=== PATIENT | female | born 1990 | race African-American/Black ===

== ENCOUNTER 2017-03-12 23:04 | Emergency (ER) | payer SELFPAY ==
[~2017-03-12] VITALS: Ht 160 cm; Wt 72.6 kg
[2017-03-12 23:05] VITALS: BP 135/77
--- NOTE | 2017-03-13 | NUR ---
CALLED FOR ROOM ASSIGNMENT; FOUND SLEEPING. STATES "I WANNA SEE A DOCTOR BUT DONT WANNA GIVE URINE OR COME IN NOW; DOTN EVEN WANT TO FEEL OUT THIS PAPERWORK. WILL CALL YOU LATER".
--- NOTE | 2017-03-13 02:02 | NUR ---
STATES "I WANT SOMEWHERE TO SLEEP SO MY BOYFRIEND CAN PICK ME UP IN THE MORNING"
--- NOTE | 2017-03-13 02:09 | NUR ---
PT TO BE REGISTERED AND HAVE NEW ACCOUNT.
== END 2017-03-13 02:10 | disposition home or self-care (01) ==
LOC: ER 23:07 → EDSEX 23:07 → ER 03-13 02:10
DX: Z53.21 Procedure and treatment not carried out due to patient leaving prior to being seen by health care provider (principal)

== ENCOUNTER 2022-08-26 14:25 | Emergency (ER) | payer MEDICARE, OTHER ==
[~2022-08-26] VITALS: Ht 165.1 cm; Wt 60.8 kg
--- NOTE | 2022-08-26 14:50 | NUR ---
PT SEEN BY MD AT BEDSIDE
--- NOTE | 2022-08-26 15:11 | NUR ---
PT SIGNED DISCHARGE FORM AND PROVIDED PRINTED RESOURCES; ACCEPTED BY PT.
--- NOTE | 2022-08-26 15:31 | NUR ---
Patient discharged to home in stable condition. Written and verbal after care instructions given. Patient verbalizes understanding of instruction.
[2022-08-26 15:36] VITALS: BP 130/68
== END 2022-08-26 15:37 | disposition home or self-care (01) ==
LOC: ER 14:25
DX: Z00.00 Encounter for general adult medical examination without abnormal findings (principal)

== ENCOUNTER 2022-09-11 03:26 | Emergency (ER) | payer MEDICARE, OTHER ==
--- NOTE | 2022-09-11 03:35 | NUR ---
PATIENT REFUSED TO BE SEEN BY A DOCTOR AND GET TRIAGED .
== END 2022-09-11 03:36 | disposition left against medical advice (07) ==
LOC: ER 03:28
DX: Z53.21 Procedure and treatment not carried out due to patient leaving prior to being seen by health care provider (principal)

== ENCOUNTER 2022-10-15 00:07 | Emergency (ER) | payer MEDICARE, OTHER ==
[~2022-10-15] VITALS: Ht 175.3 cm; Wt 52.6 kg
[2022-10-15 00:57] VITALS: BP 121/72
[2022-10-15] MEDS ORDERED: DOXY100C2 PO (00:59)
[2022-10-15] MEDS ORDERED: CEFTRIAXONE 500 MG VIAL IM ONE (01:00)
[2022-10-15] MEDS ORDERED: DOXYCYCLINE HYCLATE (100 MG) 100 MG TABLET PO ONE (01:00)
[2022-10-15] MEDS ORDERED: DOXYCYCLINE HYCLATE (100 MG) 100 MG TABLET ONE (01:06)
[2022-10-15] MEDS ORDERED: CEFTRIAXONE 500 MG VIAL ONE (01:06)
== END 2022-10-15 02:16 | disposition home or self-care (01) ==
LOC: ER 00:08
DX: A64 Unspecified sexually transmitted disease (principal)
CPT/HCPCS: J0696

== ENCOUNTER 2023-02-21 00:04 | Emergency (ER) | payer OTHER ==
[~2023-02-21] VITALS: Ht 175.3 cm; Wt 72.6 kg
[~2023-02-21 00:04] MED LIST: DOXY100C2 PO
[2023-02-21 00:10] VITALS: BP 152/71
--- NOTE | 2023-02-21 01:01 | NUR ---
Called pt to the exam room. pt is sleeping and wants to wait.
--- NOTE | 2023-02-21 01:40 | NUR ---
called pt in. pt refused to respond and wants to sleep.
--- NOTE | 2023-02-21 02:05 | NUR ---
Called pt to the exam room. pt is sleeping and wants to wait.
--- NOTE | 2023-02-21 03:31 | NUR ---
called pt to the exam room. pt is sleeping and refused to come in
--- NOTE | 2023-02-21 05:48 | NUR ---
CALLED PT IN. PT WANTS TO SLEEP AND REFUSED TO ANSWER
== END 2023-02-21 06:06 | disposition left against medical advice (07) ==
LOC: ER 00:10
DX: R10.9 Unspecified abdominal pain (principal)

== ENCOUNTER 2023-06-06 16:29 | Emergency (ER) | payer OTHER | END 2023-06-06 17:07 | disposition left against medical advice (07) | LOC: ER 16:35 | DX: Z53.21 Procedure and treatment not carried out due to patient leaving prior to being seen by health care provider (principal) ==

== ENCOUNTER 2023-08-04 23:48 | Emergency (ER) | payer OTHER, MEDICAID ==
[~2023-08-04] VITALS: Ht 188 cm; Wt 90.7 kg
[2023-08-05 02:29] LABS: APPEARANCE,URINE SLIGHTLY CLOUDY (CLEAR); BILIRUBIN,URINE NEGATIVE (NEGATIVE); BLOOD, URINE NEGATIVE Ery/uL (NEGATIVE); COLOR,URINE YELLOW (YELLOW); KETONES,URINE NEGATIVE (NEGATIVE); LEUKOCYTE ESTERASE ,URINE 2+ (NEGATIVE); NITRITE, URINE NEGATIVE (NEGATIVE); PROTEIN,URINE NEGATIVE (NEGATIVE); UGLUCOSE NEGATIVE (NEGATIVE); UROBILINOGEN,URINE 0.2 EU/dL (0.2)
[2023-08-05 02:33] LABS: PREGNANCY TEST URINE QUAL NEGATIVE (NEGATIVE)
[2023-08-05] MEDS ORDERED: NITR100C PO (02:35)
[2023-08-05] MEDS ORDERED: KETOROLAC TROMETHAMINE 15 MG/ML VIAL ONE (02:40)
[2023-08-05 02:48] VITALS: BP 103/75; TEMP 98; O2SAT 97
[2023-08-05 02:48] LABS: ADD URINE CULTURE YES; BACTERIA,URINE 2+ /HPF (None Seen); RBC,URINE 0-2 /HPF (0-2)
[2023-08-05] MEDS ORDERED: KETOROLAC TROMETHAMINE INJ 60 MG/2 ML VIAL IM ONE (03:00)
== END 2023-08-05 02:48 | disposition home or self-care (01) ==
LOC: ER 23:50
DX: N39.0 Urinary tract infection, site not specified (principal); Z88.0 Allergy status to penicillin; Z88.8 Allergy status to other drugs, medicaments and biological substances; Z59.00 Homelessness unspecified
CPT/HCPCS: 99285; 76856; 96372; 87086; 84703; 81001; J1885

== ENCOUNTER 2023-08-28 20:17 | Emergency (ER) | payer OTHER, MEDICAID ==
[~2023-08-28] VITALS: Ht 165.1 cm; Wt 90.7 kg
[~2023-08-28 20:17] MED LIST changes: +NITR100C PO
[2023-08-29 03:59] VITALS: BP 102/62; TEMP 98; O2SAT 100
== END 2023-08-29 06:14 | disposition home or self-care (01) ==
LOC: ER 20:23
DX: T76.21XA Adult sexual abuse, suspected, initial encounter (principal); Z88.0 Allergy status to penicillin; Z88.8 Allergy status to other drugs, medicaments and biological substances; Z59.00 Homelessness unspecified

== ENCOUNTER 2023-09-05 06:16 | Emergency (ER) | payer OTHER, MEDICAID ==
[~2023-09-05] VITALS: Ht 157.5 cm; Wt 95.3 kg
[2023-09-05] MEDS ORDERED: KETOROLAC TROMETHAMINE INJ 30 MG/ML VIAL ONE (06:46)
[2023-09-05] MEDS ORDERED: KETOROLAC TROMETHAMINE INJ 30 MG/ML VIAL IM ONE (07:00)
[2023-09-05 07:04] VITALS: BP 108/66; TEMP 98.3; O2SAT 100
== END 2023-09-05 07:05 | disposition left against medical advice (07) ==
LOC: ER 06:30
DX: Z88.0 Allergy status to penicillin (principal); Z79.899 Other long term (current) drug therapy
CPT/HCPCS: 99283; 96372; J1885

== ENCOUNTER 2023-09-09 18:04 | Emergency (ER) | payer OTHER, MEDICAID ==
[~2023-09-09] VITALS: Ht 188 cm; Wt 82.6 kg
[2023-09-09 18:55] VITALS: BP 134/78; TEMP 98.7; O2SAT 100
== END 2023-09-09 22:15 | disposition left against medical advice (07) ==
LOC: ER 18:09
DX: R10.2 Pelvic and perineal pain (principal); Z53.21 Procedure and treatment not carried out due to patient leaving prior to being seen by health care provider

== ENCOUNTER 2023-09-26 20:55 | Emergency (ER) | payer OTHER, MEDICAID ==
[~2023-09-26] VITALS: Ht 167.6 cm; Wt 95.3 kg
[2023-09-26 22:16] VITALS: BP 119/74; TEMP 98.4; O2SAT 98
== END 2023-09-26 22:17 | disposition home or self-care (01) ==
LOC: ER 21:07
DX: R10.2 Pelvic and perineal pain (principal); Z53.21 Procedure and treatment not carried out due to patient leaving prior to being seen by health care provider

== ENCOUNTER 2023-09-27 05:15 | Emergency (ER) | payer OTHER, MEDICAID ==
[~2023-09-27] VITALS: Ht 167.6 cm; Wt 95.3 kg
[2023-09-27 05:29] VITALS: BP 103/42; TEMP 98; O2SAT 98
[2023-09-27] MEDS ORDERED: KETOROLAC TROMETHAMINE 15 MG/ML VIAL ONE (06:20)
[2023-09-27] MEDS ORDERED: ACETAMINOPHEN 325 MG TABLET ONE (06:21)
[2023-09-27] MEDS ORDERED: ACETAMINOPHEN 325 MG TABLET PO ONE (06:30)
[2023-09-27] MEDS ORDERED: KETOROLAC TROMETHAMINE 15 MG/ML VIAL IM ONE (06:30)
== END 2023-09-27 07:45 | disposition home or self-care (01) ==
LOC: ER 05:24
DX: G89.29 Other chronic pain (principal); R10.2 Pelvic and perineal pain; Z88.0 Allergy status to penicillin; Z88.8 Allergy status to other drugs, medicaments and biological substances; Z59.00 Homelessness unspecified
CPT/HCPCS: 99283; 96372; J1885

== ENCOUNTER 2024-02-25 11:58 | Emergency (ER) | payer OTHER, MEDICAID | END 2024-02-25 12:22 | disposition left against medical advice (07) | LOC: ER 12:05 | DX: Z00.8 Encounter for other general examination (principal); Z53.21 Procedure and treatment not carried out due to patient leaving prior to being seen by health care provider ==

== ENCOUNTER 2024-03-29 00:38 | Emergency (ER) | payer OTHER, MEDICAID | END 2024-03-29 04:52 | disposition left against medical advice (07) | LOC: ER 00:52 | DX: R10.2 Pelvic and perineal pain (principal); Z53.21 Procedure and treatment not carried out due to patient leaving prior to being seen by health care provider ==

== ENCOUNTER 2024-04-06 06:01 | Emergency (ER) | payer OTHER, MEDICAID ==
[~2024-04-06] VITALS: Ht 162.6 cm; Wt 63.5 kg
[2024-04-06] MEDS ORDERED: KETOROLAC TROMETHAMINE 15 MG/ML VIAL ONE (06:41)
[2024-04-06] MEDS: KETOROLAC TROMETHAMINE 15 MG/ML VIAL IM ONE (07:00)
[2024-04-06 07:29] VITALS: BP 100/68; TEMP 98.4; O2SAT 98
== END 2024-04-06 07:29 | disposition home or self-care (01) ==
LOC: ER 06:06
DX: R10.2 Pelvic and perineal pain (principal); Z98.890 Other specified postprocedural states; Z79.899 Other long term (current) drug therapy; Z59.00 Homelessness unspecified; Z88.0 Allergy status to penicillin
CPT/HCPCS: 99283; 96372; J1885

== ENCOUNTER 2024-05-09 10:08 | Emergency (ER) | payer OTHER, MEDICAID | END 2024-05-09 10:35 | disposition left against medical advice (07) | LOC: ER 10:08 | DX: R10.9 Unspecified abdominal pain (principal); Z53.21 Procedure and treatment not carried out due to patient leaving prior to being seen by health care provider ==

== ENCOUNTER 2024-07-22 06:53 | Emergency (ER) | payer OTHER | END 2024-07-22 08:27 | disposition home or self-care (01) | LOC: ER 06:57 | DX: Z53.21 Procedure and treatment not carried out due to patient leaving prior to being seen by health care provider (principal) ==

== ENCOUNTER 2024-08-18 06:28 | Emergency (ER) | payer OTHER ==
[~2024-08-18] VITALS: Ht 172.7 cm; Wt 90.7 kg
[2024-08-18] MEDS ORDERED: ACETAMINOPHEN ES 500 MG TABLET ONE (08:06)
[2024-08-18] MEDS: ACETAMINOPHEN ES 500 MG TABLET PO ONE (08:09)
[2024-08-18 08:27] VITALS: BP 128/64; TEMP 98.2; O2SAT 99
== END 2024-08-18 08:28 | disposition home or self-care (01) ==
LOC: ER 06:28
DX: T76.21XA Adult sexual abuse, suspected, initial encounter (principal); Z79.899 Other long term (current) drug therapy; Z59.00 Homelessness unspecified; Z88.0 Allergy status to penicillin; Y93.89 Activity, other specified; Y92.89 Other specified places as the place of occurrence of the external cause; Y99.8 Other external cause status

== ENCOUNTER 2024-08-29 02:02 | Emergency (ER) | payer OTHER | END 2024-08-29 02:50 | disposition left against medical advice (07) | LOC: ER 02:08 | DX: T76.21XA Adult sexual abuse, suspected, initial encounter (principal); Z53.21 Procedure and treatment not carried out due to patient leaving prior to being seen by health care provider ==

== ENCOUNTER 2024-09-23 05:36 | Emergency (ER) | payer MEDICARE, OTHER ==
[~2024-09-23] VITALS: Ht 172.7 cm; Wt 90.7 kg
[2024-09-23] MEDS ORDERED: DOXY100C2 PO (07:11)
[2024-09-23 07:24] LABS: APPEARANCE,URINE CLEAR (CLEAR); BILIRUBIN,URINE NEGATIVE (NEGATIVE); BLOOD, URINE NEGATIVE Ery/uL (NEGATIVE); COLOR,URINE YELLOW (YELLOW); KETONES,URINE NEGATIVE (NEGATIVE); LEUKOCYTE ESTERASE ,URINE TRACE (NEGATIVE); NITRITE, URINE NEGATIVE (NEGATIVE); PH,URINE 5.5 (5.0-8.0); PROTEIN,URINE NEGATIVE (NEGATIVE); UGLUCOSE NEGATIVE (NEGATIVE); UROBILINOGEN,URINE 0.2 EU/dL (0.2)
[2024-09-23 07:25] LABS: ADD URINE CULTURE NO; BACTERIA,URINE Rare /HPF (None Seen); RBC,URINE 0-2 /HPF (0-2)
[2024-09-23 07:26] LABS: SQUAMOUS EPITHELIAL CELL,UR Moderate /HPF (None Seen)
[2024-09-23] MEDS ORDERED: LIDOCAINE 1% INJ 50 ML MDV IJ ONE (07:38)
[2024-09-23] MEDS ORDERED: CEFTRIAXONE 1 G VIAL ONE (07:39)
[2024-09-23] MEDS: CEFTRIAXONE 1 G VIAL IM ONE (07:45)
[2024-09-23 07:56] VITALS: BP 135/68; TEMP 98.1; O2SAT 98
[2024-09-24 05:13] LABS: RAPID PLASMA REAGIN QUAL. Non Reactive (Non Reactive)
[2024-09-24 13:29] LABS: HIV-1 p24 ANTIGEN NON REACTIVE (NONREACTIVE); HIV-1/2 ANTIBODY NON REACTIVE (NONREACTIVE)
[2024-09-25 07:09] LABS: CHLAMYDIA TRACHOMATIS NAA Negative (Negative); NEISSERIA GONORRHOEAE NAA Negative (Negative)
== END 2024-09-23 07:56 | disposition home or self-care (01) ==
LOC: ER 05:44
DX: T76.21XA Adult sexual abuse, suspected, initial encounter (principal); G89.29 Other chronic pain; R10.2 Pelvic and perineal pain; Z20.2 Contact with and (suspected) exposure to infections with a predominantly sexual mode of transmission; Z59.00 Homelessness unspecified; Z88.0 Allergy status to penicillin; Y08.89XA Assault by other specified means, initial encounter; Y93.89 Activity, other specified; Y92.89 Other specified places as the place of occurrence of the external cause; Y99.8 Other external cause status
CPT/HCPCS: 99283; 86592; 86593; 96372; 81001; 36415; 87806; 87491; 87591; J3490; J0696

== ENCOUNTER 2025-01-08 00:50 | Emergency (ER) | payer MEDICARE ==
[~2025-01-08] VITALS: Ht 165.1 cm; Wt 70.3 kg
== END 2025-01-08 06:27 | disposition home or self-care (01) ==
LOC: ER 00:52
DX: T74.21XA Adult sexual abuse, confirmed, initial encounter (principal); Z59.00 Homelessness unspecified; Z88.0 Allergy status to penicillin; Z79.899 Other long term (current) drug therapy

== ENCOUNTER 2025-01-08 22:52 | Emergency (ER) | payer MEDICARE | END 2025-01-08 23:52 | disposition left against medical advice (07) | LOC: ER 22:54 | DX: Z53.21 Procedure and treatment not carried out due to patient leaving prior to being seen by health care provider (principal) ==

== ENCOUNTER 2025-02-14 17:20 | Emergency (ER) | payer MEDICARE | END 2025-02-14 20:07 | disposition left against medical advice (07) | LOC: ER 17:24 | DX: Z53.21 Procedure and treatment not carried out due to patient leaving prior to being seen by health care provider (principal) ==

== ENCOUNTER 2025-03-29 17:38 | Emergency (ER) | payer MEDICARE ==
[~2025-03-29] VITALS: Ht 157.5 cm; Wt 90.7 kg
[2025-03-29] MEDS ORDERED: DOXY100C2 PO (20:09)
[2025-03-29] MEDS ORDERED: CEFTRIAXONE 500 MG VIAL ONE (20:39)
[2025-03-29] MEDS: CEFTRIAXONE 500 MG VIAL IM ONE (20:55)
[2025-03-29 21:33] VITALS: BP 129/76; TEMP 98.2; O2SAT 100
== END 2025-03-29 21:33 | disposition home or self-care (01) ==
LOC: ER 17:48
DX: T74.21XA Adult sexual abuse, confirmed, initial encounter (principal); Z59.00 Homelessness unspecified; Z88.0 Allergy status to penicillin; Y92.9 Unspecified place or not applicable
CPT/HCPCS: 99283; 96372; J0696

== ENCOUNTER 2025-07-20 22:20 | Emergency (ER) | payer MEDICARE ==
[~2025-07-20] VITALS: Ht 157.5 cm; Wt 90.7 kg
[2025-07-21 00:40] VITALS: BP 137/83; TEMP 98; O2SAT 99
[2025-07-21] MEDS ORDERED: ACETAMINOPHEN ES 500 MG TABLET ONE (01:13)
[2025-07-21] MEDS: ACETAMINOPHEN ES 500 MG TABLET PO ONE (01:16)
== END 2025-07-21 01:16 | disposition home or self-care (01) ==
LOC: ER 22:23
DX: M25.562 Pain in left knee (principal); Z60.2 Problems related to living alone; Z79.899 Other long term (current) drug therapy; Z88.0 Allergy status to penicillin

== ENCOUNTER 2025-07-23 23:57 | Emergency (ER) | payer MEDICARE | END 2025-07-24 03:32 | disposition left against medical advice (07) | LOC: ER 07-24 00:06 | DX: T76.21XA Adult sexual abuse, suspected, initial encounter (principal); Z53.21 Procedure and treatment not carried out due to patient leaving prior to being seen by health care provider; Y92.89 Other specified places as the place of occurrence of the external cause ==

== ENCOUNTER 2025-07-27 06:33 | Emergency (ER) | payer MEDICARE ==
[~2025-07-27] VITALS: Ht 157.5 cm; Wt 90.7 kg
[2025-07-27 06:45] VITALS: BP 120/75; TEMP 98
[2025-07-27 07:05] VITALS: O2SAT 98
== END 2025-07-27 07:06 | disposition home or self-care (01) ==
LOC: ER 06:33
DX: Z00.00 Encounter for general adult medical examination without abnormal findings (principal); Z88.0 Allergy status to penicillin